=== PATIENT | female | born 1965 | race Caucasian/White ===

== ENCOUNTER 2023-01-18 07:18 | Day surgery (SDC) | payer BC ==
[~2023-01-18] VITALS: Ht 170.2 cm; Wt 132.0 kg
[2023-01-18] MEDS ORDERED: MEPERIDINE 50 MG/ML VIAL ONE (07:40)
[2023-01-18] MEDS ORDERED: MIDAZOLAM HCL 5 MG/5 ML VIAL ONE (10:17)
[2023-01-18 15:04] VITALS: BP_SYST 141
== END 2023-01-18 11:45 | disposition home or self-care (01) ==
LOC: SDS 07:18 → STU 07:19 → SDS 11:45
PROVIDERS: ATTEND Internal Medicine Gastroenterology
DX: K21.9 Gastro-esophageal reflux disease without esophagitis (principal); K31.7 Polyp of stomach and duodenum; K29.50 Unspecified chronic gastritis without bleeding; E66.01 Morbid (severe) obesity due to excess calories; I10 Essential (primary) hypertension; F32.A Depression, unspecified; Z79.899 Other long term (current) drug therapy; Z20.822 Contact with and (suspected) exposure to COVID-19; Z68.42 Body mass index [BMI] 45.0-49.9, adult
CPT/HCPCS: 43251; 87081; 36415; 43239; 88305; 88312; 88313; 99152; 87426; G0378; J2250; J2175

== ENCOUNTER 2024-06-17 07:33 | Day surgery (SDC) | payer BC ==
[~2024-06-17] VITALS: Ht 167.6 cm; Wt 79.4 kg
[2024-06-17] MEDS ORDERED: MEPERIDINE 100 MG INJ. 100 MG/ML VIAL ONE (08:01)
[2024-06-17] MEDS ORDERED: SIMETHICONE 40 MG/0.6 ML ML ONE (08:01)
[2024-06-17] MEDS ORDERED: MIDAZOLAM HCL 5 MG/5 ML VIAL ONE (08:02)
[2024-06-17 12:17] VITALS: O2SAT 97
[2024-06-17 16:48] VITALS: BP_SYST 125; PULSE 52; RESP 16
== END 2024-06-17 10:35 | disposition home or self-care (01) ==
LOC: SDS 07:33 → SMU 07:44 → SDS 10:35
PROVIDERS: ATTEND Internal Medicine Gastroenterology
DX: R10.9 Unspecified abdominal pain (principal); K29.30 Chronic superficial gastritis without bleeding; K22.70 Barrett's esophagus without dysplasia; K44.9 Diaphragmatic hernia without obstruction or gangrene; I10 Essential (primary) hypertension; F32.A Depression, unspecified; K21.9 Gastro-esophageal reflux disease without esophagitis; Z98.84 Bariatric surgery status; Z98.891 History of uterine scar from previous surgery; Z79.899 Other long term (current) drug therapy
CPT/HCPCS: 43245; 99152; 88305; 88312; 88313; 43239; G0378; J2250; J2175